=== PATIENT | female | born 2000 | race African-American/Black ===

== ENCOUNTER 2018-05-25 20:37 | Emergency (ER) | payer BC, SELFPAY ==
[2018-05-25 21:30] LABS: #Basophils 0.1 thou/uL (0.0-0.2); #Eosinphils 0.1 thou/uL (0.0-0.7); #Lymphocytes 1.7 thou/uL (1.20-3.40); #Monocytes 0.4 thou/uL (0.11-0.59); #Neutrophils 5.7 thou/uL (1.40-6.50); %Eosinophils 1.2 % (0.0-10.0); %Lymphocytes 20.8 % (28.0-48.0); %Monocytes 5.1 % (0.0-4.0); %Neutrophils 71.9 % (31.0-61.0); Hemoglobin 13.3 g/dL (12.0-16.0); Mean Corpuscular HGB CONC 32.4 g/dL (32.0-36.0); Mean Corpuscular Hemoglobin 31.1 pg (25.0-35.0); Mean Corpuscular Volume 96.1 fL (78.0-98.0); Mean Platelet Volume 7.4 fL (7.4-10.4); Platelet Count 357 thou/uL (130-400); RBC Distribution Width 10.9 % (11.5-14.5); Red Blood Cell (RBC) Count 4.28 mill/uL (4.00-5.20)
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
--- NOTE | 2018-05-25 21:46 | RAD ---
AP VIEW CHEST 05/25/18 HISTORY: Shortness of breath. AP view chest is obtained. The lungs are well aerated. No evidence of active intrathoracic disease se en. No evidence of effusions, pneumonia, or pneumothorax seen. IMPRESSION: Unremarkable AP view chest. POS: [facility]
[2018-05-25] MEDS ORDERED: Lorazepam 2 MG/ML VIAL ONE (21:51)
[2018-05-25] MEDS ORDERED: Metoclopramide HCl 10 MG/2 ML VIAL ONE (21:51)
[2018-05-25] MEDS ORDERED: diphenhydrAMINE 50 MG/ML VIAL ONE (21:51)
[2018-05-25 21:57] LABS: ALT (SGPT) 15 U/L (8-55); AST (SGOT) 18 U/L (5-34); Albumin 4.1 g/dL (3.5-5.0); Alkaline Phosphatase 82 U/L (40-150); Anion Gap 10 mmol/L (10-20); BUN (Urea Nitrogen) 9 mg/dL (7.0-18.7); Bilirubin, Total 0.3 mg/dL (0.2-1.2); Calc. Creatinine Clearance 0 mL/min (70-130); Calcium 9.2 mg/dL (7.8-10.44); Carbon Dioxide 27 mmol/L (22-29); Chloride 107 mmol/L (98-107); Estimated GFR-MDRD Greater than 90; Globulin 3.2 g/dL (2.4-3.5); Glucose 103 mg/dL (70-105); Potassium 4.1 mmol/L (3.5-5.1); Protein, Total 7.3 g/dL (6.0-8.3); Sodium 140 mmol/L (136-145)
[2018-05-25 22:07] LABS: BHCG - Serum Negative (NEGATIVE); Pregs Control Background? CLEAR/WHITE (CLR/WHITE); Pregs Control Bar Appear? YES (CONTROL BAR)
== END 2018-05-25 23:12 | disposition home or self-care (01) ==
LOC: ERS 20:37
DX: R51 Headache (principal)
CPT/HCPCS: 36415; 70450; 71045; 80053; 84703; 85025; 96365; 96375; 96376; J1200; J2060; J2765

== ENCOUNTER 2019-03-07 08:27 | Emergency (ER) | payer BC ==
[2019-03-07] MEDS ORDERED: Dexamethasone 4 mg/ml Vial ONE (09:09)
[2019-03-07] MEDS ORDERED: Acetaminophen 500 MG TAB ONE (09:09)
[2019-03-07] MEDS ORDERED: Ketorolac Tromethamine 30 MG/ML VIAL ONE (09:09)
== END 2019-03-07 09:37 | disposition home or self-care (01) ==
LOC: ERS 08:27
DX: M62.830 Muscle spasm of back (principal); M54.2 Cervicalgia
CPT/HCPCS: 96372; 99283; J1100; J1885